=== PATIENT | male | born 1990 | race American Indian/Alaskan Native ===

== ENCOUNTER 2017-05-05 04:56 | Emergency (ER) | payer SELFPAY ==
[2017-05-05 05:10] VITALS: O2SAT 98
--- NOTE | 2017-05-05 05:49 | C.PDOC ---
History Of Present Illness 27 year old male presents to the ED c/o left knee and ankle pain that started yesterday after playing basketball. Patient states he twisted his knee but was able to keep playing, took Tylenol 1,000 mg for pain with minimal relief. Patient reports today woke up at 04:00 due to the pain in his knee. Patient denies fall, weakness, numbness. Time Seen by Provider: 05/05/17 05:18 Chief Complaint (Nursing): Lower Extremity Problem/Injury History Per: Patient History/Exam Limitations: no limitations Onset/Duration Of Symptoms: Days Current Symptoms Are (Timing): Still Present Recent travel outside of the [place]: No Additional History Per: Patient - Knee Description Of Injury: Twisted Currently Unable To: Bend Or Move Alleviating Factor(s): OTC Pain Medication Past Medical History Reviewed: Historical Data, Nursing Documentation, Vital Signs Vital Signs: Last Vital Signs Temp 98.0 F 05/05/17 06:27 Pulse 72 05/05/17 06:27 Resp 16 05/05/17 06:27 BP 126/72 05/05/17 06:27 Pulse Ox 98 05/05/17 06:40 - Medical History PMH: No Chronic Diseases Surgical History: No Surg Hx Family History: States: Unknown Family Hx - Social History Hx Alcohol Use: No Hx Substance Use: No - Immunization History Hx Tetanus Toxoid Vaccination: No Hx Influenza Vaccination: No Hx Pneumococcal Vaccination: No Review Of Systems Constitutional: Negative for: Fever, Chills Musculoskeletal: Positive for: Leg Pain, Foot Pain Skin: Negative for: Rash Neurological: Negative for: Weakness, Numbness Physical Exam - Physical Exam Appears: Non-toxic, No Acute Distress Skin: Warm, Dry Head: Atraumatic, Normacephalic Eye(s): bilateral: Normal Inspection Extremity: Normal ROM (Left knee painful ), Tenderness (Medial left knee and patella), No Calf Tenderness, Capillary Refill (< 2 seconds), No Swelling, Other (from left ankle, minimal tenderness anterior lateral malleolus, no swelling noted. ) Pulses: Left Dorsalis Pedis: Normal, Right Dorsalis Pedis: Normal Neurological/Psych: Oriented x3, Normal Speech, Normal Cognition, Normal Motor, Normal Sensation ED Course And Treatment O2 Sat by Pulse Oximetry: 98 (On RA) Pulse Ox Interpretation: Normal Medical Decision Making Medical Decision Making: Plan: * Left Knee X-Ray * Toradol 30 mg IM * Knee immobilizer * crutches 628 am no fx noted on xrays; pt placed in knee immobilizer and given crutch instruction. d/c home with ortho f/u and pmd. Disposition Counseled Patient/Family Regarding: Studies Performed, Diagnosis, Need For Followup - Disposition Referrals: Joe Howard III, MD [Staff Provider] - Disposition: HOME/ ROUTINE Disposition Time: 06:30 Condition: GOOD Additional Instructions: Please wear knee immobilizer for comfort, and use crutches. Avoid weight bearing. Take ibuprofen 600 mg by mouth every 6 hours (with food). Follow up with orthopedist of your choice or Dr Howard. Cold compresses to knee several times a day. Instructions: Ligament Injuries in the Knee (DC) Forms: General Discharge Instructions, [facility] ([place]), Work Excuse - Clinical Impression Clinical Impression: Left medial knee pain - PA / [employer] / Resident Statement MD/DO has reviewed & agrees with the documentation as recorded. - Scribe Statement The provider has reviewed the documentation as recorded by the Scribe Jean Gomes All medical record entries made by the Scribrajesh were at my direction and personally dictated by me. I have reviewed the chart and agree that the record accurately reflects my personal performance of the history, physical exam, medical decision making, and the department course for this patient. I have also personally directed, reviewed, and agree with the discharge instructions and disposition.
[2017-05-05 07:15] VITALS: BP 126/72; PULSE 72; RESP 16; TEMP 98
--- NOTE | 2017-05-05 07:24 | RAD ---
PROCEDURE: Left Knee Radiographs. HISTORY: Pain. COMPARISON: None. FINDINGS: BONES: No acute fracture or destructive bony lesion identified. A small bone island is seen at the lateral portion of the lateral femoral condyle. JOINTS: Normal. No osteoarthritis. JOINT EFFUSION: None. OTHER FINDINGS: None. IMPRESSION: No acute fracture or dislocation identified.
== END 2017-05-05 06:47 | disposition home or self-care (01) ==
LOC: C.ER 04:56
DX: M25.562 Pain in left knee (principal)
CPT/HCPCS: 73562; 96372; 99283; J1885